=== PATIENT | male | born 1965 | race Caucasian/White ===

== ENCOUNTER 2025-10-22 14:55 | Outpatient (AMB) | payer OTHER, SELFPAY ==
--- NOTE | 2025-10-22 15:05 | MHC.OFFVIS ---
Intake Visit Reasons: Elevated PSA SET UA Intake Note: Reason for Visit: New Patient for Elevated PSA Urology Meds: None Blood Thinners: Eliquis Antbiotic Allergy: None Labs: PSA- 12.0 (07/13/25) Imaging: None Last PVR: None Family History: Prostate Cancer? No Bladder Cancer? No Kidney Cancer? No Smoking History? never Previous Urology? 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 He is a patient of Dr. Cantu. He is seen for the following urologic conditions - elevated PSA Prior stroke Large hernia Discussed potential causes of elevated PSA DOMENICA normal 2+ He would prefer to trial 5AR Dutasteride prescribed Four-month follow-up If persistent elevated PSA would recommend biopsy Elevated PSA Family history prostate cancer grandfather PSA 06/29 11.4, 07/30 12.0 Assessment & Plan Assessment & Plan (1) Elevated PSA, between 10 and less than 20 ng/ml: Code(s): R97.20 - Elevated prostate specific antigen [PSA] Category: Medical Plan Prescription Four-month follow-up repeat labs Orders: Orders PSA,Total (Free>4and<10) 4 Months R97.20 - Elevated prostate specific antigen [PSA] Medications: New dutasteride 0.5 mg PO DAILY 90 caps 1RF 90 days R97.20 - Elevated prostate specific antigen [PSA] Patient Instructions: This note is constructed using voice recognition software. While every effort has been made to ensure accuracy pearl maker errors may have been included. Imaging studies, laboratory and physical exam results were discussed and reviewed in detail. No major barriers to patient understanding were identified. An opportunity to ask questions regarding the treatment plan was provided. All questions were answered. The patient expressed understanding and agreement with the above treatment plan. The patient is aware they should contact our office by phone for worsening of their current condition or the appearance of new urologic symptoms. Compliance is encouraged with any medications and followup testing that is ordered. It is a privilege to participate in the urologic care of your patient. If you have any questions or concerns regarding treatment for the above conditions, or other urologic issues, please do not hesitate to contact me. The office telephone contact is [phone]. Sincerely, Dr Nomi Sanchez MD, [facility] - Urology Compassionate Specialist Care for the Genitourinary System Coding Level of Care Code New Pt Level 4 (39437) Diagnoses Elevated PSA, between 10 and less than 20 ng/ml R97.20
== END 2025-10-22 15:52 | disposition home or self-care (01) ==
LOC: HO.HUSH 14:55
PROVIDERS: PCP Internal Medicine; Visit Provider Urology
DX: R97.20 Elevated prostate specific antigen [PSA] (principal)
CPT/HCPCS: 99204

== ENCOUNTER → 2025-10-22 14:55 | Outpatient (BNVA) | payer OTHER, SELFPAY | PROVIDERS: PCP Internal Medicine; Visit Provider Urology | DX: R97.20 Elevated prostate specific antigen [PSA] (principal); Z79.01 Long term (current) use of anticoagulants | CPT/HCPCS: 99202 ==